=== PATIENT | female | born 1945 | race Caucasian/White ===

== ENCOUNTER → 2016-11-03 | Outpatient (CLI) | payer BC ==
[~2016-11-03] MED LIST: BETHANECHOL25 MG PO; CALCIUM; DIGESTIVE ENZYM1 TAB PO; FISH OIL1000 MG PO; HOMEOPATHIC MEDS; MAGNESIUM ELEME30 MG PO; PREMARIN0.9 MG PO; QVAR0.08 MG/AC IH; STOOL SOFTENER100 M2 PO; THYROID PO; TOPROL XL 25MG25 MG PO; VITAMIN D32000 IU PO; ZANTAC150 MG PO; [UNRECOGNIZED DRUG - OTHER]; [UNRECOGNIZED DRUG - OTHER]
== END ==
LOC: COL.LAB 17:02
DX: R10.32 Left lower quadrant pain (principal)

== ENCOUNTER → 2016-11-04 | Outpatient (CLI) | payer BC | LOC: COL.RAD 13:00 | DX: R10.32 Left lower quadrant pain (principal) ==

== ENCOUNTER 2017-02-18 18:37 | Emergency (ER) | payer BC ==
[~2017-02-18] VITALS: Ht 160 cm; Wt 63.6 kg
[2017-02-18 18:45] VITALS: TEMP 98.1
[2017-02-18 19:13] LABS: BASO # 0.1 (0.0-0.2); BASO % 0.8 % (0.0-2.0); EOS # 0.3 (0.0-0.7); EOS % 4.1 % (0-4.0); GRAN # 4.6 (1.4-6.5); GRAN % 61.2 % (42.2-75.2); HEMATOCRIT 43.2 % (37.0-47.0); HEMOGLOBIN 14.6 g/dl (12.5-16.0); LYMPH # 1.7 (1.2-3.4); MEAN CELL VOLUME 96 fl (80.0-100.0); MEAN CORPUSCULAR HEMOGLOBIN 32 pg (27.0-31.0); MEAN CORPUSCULAR HGB CONC 34 g/dl (33.0-37.0); MONO # 0.8 (0.1-0.6); MONO % 10.6 % (1.7-9.3); PLATELET COUNT 166 K/mm3 (130-400); RED BLOOD COUNT 4.52 M/mm3 (4.10-5.30); REDCELL DISTRIBUTION WIDTH-CV 13.3 % (11.5-14.5); WHITE BLOOD COUNT 7.5 K/mm3 (4.8-10.8)
[2017-02-18 19:37] LABS: PH 5 (5-8); SQUAMOUS EPITHELIAL None Seen /hpf; URINE APPEARANCE Clear; URINE BACTERIA None Seen /hpf; URINE BILIRUBIN Negative (NEGATIVE); URINE BLOOD Negative (NEGATIVE); URINE COLOR Straw; URINE GLUCOSE Negative (NEGATIVE); URINE KETONE Negative (NEGATIVE); URINE RBC 0-2 /hpf; URINE UROBILINOGEN Negative (NEGATIVE); URINE WBC 0-2 /hpf
[2017-02-18 19:39] LABS: INR 0.9 (0.8-3.0); PROTHROMBIN TIME 10.4 SECONDS (9.7-12.8)
[2017-02-18 19:50] LABS: ADJUSTED CALCIUM 9.6 mg/dL (8.4-10.2); ALANINE AMINOTRANSFERASE 37 U/L (9-52); ALBUMIN 4.2 gm/dL (3.5-5.0); ALKALINE PHOSPHATASE 68 U/L (50-136); ANION GAP 10 mmol/L (7-16); BILIRUBIN,TOTAL 0.6 mg/dL (0.0-1.0); BLOOD UREA NITROGEN 21 mg/dL (7-17); CALCIUM 9.8 mg/dL (8.4-10.2); CARBON DIOXIDE 28 mmol/L (22-30); CHLORIDE 101 mmol/L (98-107); CREATININE, serum 0.79 mg/dL (0.52-1.25); GLUCOSE 90 mg/dL (74-106); POTASSIUM 4.1 mmol/L (3.4-5.0); SODIUM 139 mmol/L (137-145); TOTAL PROTEIN 7.2 gm/dL (6.4-8.2)
[2017-02-18 20:01] LABS: TROPONIN-I < 0.012 ng/mL (0.000-0.034)
[2017-02-18 22:39] VITALS: BP 106/54; PULSE 88
== END 2017-02-18 22:39 | disposition home or self-care (01) ==
LOC: COL.ER 18:37
PROVIDERS: Emergency Medicine
DX: R07.9 Chest pain, unspecified (principal); R42 Dizziness and giddiness; R53.1 Weakness; J45.909 Unspecified asthma, uncomplicated; C85.90 Non-Hodgkin lymphoma, unspecified, unspecified site

== ENCOUNTER 2017-06-13 19:44 | Emergency (ER) | payer OTHER, BC ==
[~2017-06-13] VITALS: Ht 160 cm; Wt 62.7 kg
[2017-06-13 19:47] VITALS: BP 128/85; TEMP 98.6
[2017-06-13 22:34] VITALS: PULSE 91
== END 2017-06-13 22:34 | disposition home or self-care (01) ==
LOC: COL.ER 19:44
DX: S61.011A Laceration without foreign body of right thumb without damage to nail, initial encounter (principal); J45.909 Unspecified asthma, uncomplicated; I47.1 Supraventricular tachycardia; Z85.72 Personal history of non-Hodgkin lymphomas; W23.0XXA Caught, crushed, jammed, or pinched between moving objects, initial encounter

== ENCOUNTER 2017-06-23 20:32 | Emergency (ER) | payer OTHER ==
[2017-06-23 21:00] VITALS: PULSE 79
== END 2017-06-23 21:05 | disposition home or self-care (01) ==
LOC: COL.ER 20:32
DX: Z48.02 Encounter for removal of sutures (principal)

== ENCOUNTER → 2017-06-27 | Emergency (ER) | payer OTHER, BC ==
[2017-06-27 14:56] VITALS: BP 128/62; PULSE 81; TEMP 98.1
== END ==
LOC: COL.ER 14:49
DX: Z48.02 Encounter for removal of sutures (principal)

== ENCOUNTER 2017-10-02 16:01 | Emergency (ER) | payer BC ==
[~2017-10-02] VITALS: Ht 160 cm; Wt 62.3 kg
[2017-10-02 16:03] VITALS: BP 145/89
[2017-10-02] MEDS ORDERED: FLEXERIL 1010 MG/TAB PO (17:32)
[2017-10-02] MEDS ORDERED: CRUTCHES MC (17:33)
[2017-10-02 17:44] VITALS: PULSE 92
== END 2017-10-02 17:45 | disposition home or self-care (01) ==
LOC: COL.ER 16:01
DX: S76.311A Strain of muscle, fascia and tendon of the posterior muscle group at thigh level, right thigh, initial encounter (principal); K21.9 Gastro-esophageal reflux disease without esophagitis; J45.909 Unspecified asthma, uncomplicated; Z85.72 Personal history of non-Hodgkin lymphomas; W00.0XXA Fall on same level due to ice and snow, initial encounter; Y93.01 Activity, walking, marching and hiking; Y99.0 Civilian activity done for income or pay
CPT/HCPCS: J1885

== ENCOUNTER → 2018-07-06 | Outpatient (CLI) | payer BC ==
[~2018-07-06] MED LIST changes: +CRUTCHES MC; +FLEXERIL 1010 MG/TAB PO
== END ==
LOC: COL.RAD 09:52
DX: J34.89 Other specified disorders of nose and nasal sinuses (principal)

== ENCOUNTER 2019-02-21 20:41 | Emergency (ER) | payer BC ==
[~2019-02-21] VITALS: Ht 160 cm; Wt 58.2 kg
[2019-02-21 20:49] VITALS: TEMP 97.4
[2019-02-21 22:17] VITALS: BP 137/62; PULSE 84
== END 2019-02-21 22:17 | disposition home or self-care (01) ==
LOC: COL.ER 20:41
DX: S51.811A Laceration without foreign body of right forearm, initial encounter (principal); J45.909 Unspecified asthma, uncomplicated; W01.0XXA Fall on same level from slipping, tripping and stumbling without subsequent striking against object, initial encounter; Z87.891 Personal history of nicotine dependence; Y92.009 Unspecified place in unspecified non-institutional (private) residence as the place of occurrence of the external cause

== ENCOUNTER 2019-03-04 21:03 | Emergency (ER) | payer BC | END 2019-03-04 21:47 | disposition home or self-care (01) | LOC: COL.ER 21:03 | DX: S51.811D Laceration without foreign body of right forearm, subsequent encounter (principal); X58.XXXD Exposure to other specified factors, subsequent encounter ==

== ENCOUNTER 2019-09-23 13:42 | Emergency (ER) | payer BC ==
[~2019-09-23] VITALS: Ht 160 cm; Wt 57.7 kg
[~2019-09-23 13:42] MED LIST changes: -THE MEDICINE S200 M2 PO
[2019-09-23 14:39] LABS: BASO % 0.3 % (0.0-2.0); EOS # 0.2 (0.0-0.7); EOS % 1.9 % (0-4.0); GRAN # 8.2 (1.4-6.5); GRAN % 74.5 % (42.2-75.2); HEMATOCRIT 44.5 % (37.0-47.0); HEMOGLOBIN 14.9 g/dl (12.5-16.0); LYMPH # 1.4 (1.2-3.4); MEAN CELL VOLUME 99 fl (80.0-100.0); MEAN CORPUSCULAR HEMOGLOBIN 33 pg (27.0-31.0); MEAN CORPUSCULAR HGB CONC 34 g/dl (33.0-37.0); MEAN PLATELET VOLUME 10.9 fl (7.4-10.4); MONO % 9.2 % (1.7-9.3); PLATELET COUNT 230 K/mm3 (130-400); RED BLOOD COUNT 4.49 M/mm3 (4.10-5.30); REDCELL DISTRIBUTION WIDTH-CV 13.4 % (11.5-14.5)
[2019-09-23 14:40] LABS: INR 0.9 (0.8-3.0)
[2019-09-23] MEDS ORDERED: THE MEDICINE S200 M2 PO (14:42)
[2019-09-23 15:29] LABS: ALBUMIN 3.3 gm/dL (3.5-5.0); BILIRUBIN,TOTAL 0.8 mg/dL (0.0-1.0); CALCIUM 8.8 mg/dL (8.4-10.2); CREATININE, serum 0.7 (0.52-1.25); POTASSIUM 4.4 mmol/L (3.4-5.0); TOTAL PROTEIN 5.9 gm/dL (6.4-8.2)
[2019-09-23 15:41] LABS: TROPONIN-I 0.023 ng/mL (0.000-0.035)
[2019-09-23 19:28] VITALS: BP 119/64; PULSE 77
== END 2019-09-23 19:28 | disposition home or self-care (01) ==
LOC: COL.ER 13:42
PROVIDERS: Emergency Medicine
DX: R07.89 Other chest pain (principal); J45.909 Unspecified asthma, uncomplicated; Z90.710 Acquired absence of both cervix and uterus; Z98.51 Tubal ligation status; Z87.891 Personal history of nicotine dependence
CPT/HCPCS: C9113

== ENCOUNTER → 2019-09-23 | Outpatient (CLI) | payer BC ==
[~2019-09-23] MED LIST changes: +ALBUTEROL1.25 MG/3 IH; +ALDACTONE 25MG25 M1 PO; +ALTACE 2.5MG T2.5 MG PO; +PREDNISONE10 MG PO; +PREDNISONE20 MG PO; +QVAR REDIHALE10.6 G1 IH; +THE MEDICINE S200 M2 PO; +ZEBETA 5MG5 MG PO
[2019-09-24 18:16] LABS: PROGESTERONE 0.9 ng/mL (())
== END ==
LOC: COL.LAB 19:37
PROVIDERS: Urology
DX: G47.00 Insomnia, unspecified (principal); Z79.890 Hormone replacement therapy

== ENCOUNTER 2019-12-09 15:54 | Outpatient (RCR) | payer SELFPAY ==
[~2019-12-09 15:54] MED LIST changes: +THE MEDICINE S200 M2 PO
== END 2019-12-24 | disposition home or self-care (01) ==
LOC: COL.CR
DX: Z02.89 Encounter for other administrative examinations (principal)

== ENCOUNTER 2020-04-10 10:44 | Day surgery (SDC) | payer BC ==
[~2020-04-10] VITALS: Ht 160 cm; Wt 57.0 kg
[2020-04-10] MEDS ORDERED: ZEBETA 5MG5 MG PO (12:18)
[2020-04-10] MEDS ORDERED: COLACE 100100 MG/CAP PO (12:19)
[2020-04-10] MEDS ORDERED: Bioidentical Hormone TOP (12:22)
[2020-04-10] MEDS ORDERED: FISH OIL 1000MG1 CAP PO (12:24)
[2020-04-10] MEDS ORDERED: XOPENEX HF0.045 MG/A IH (12:27)
[2020-04-10] MEDS ORDERED: ATIVAN 0.50.5 MG/TAB PO (12:28)
[2020-04-10] MEDS ORDERED: PROTONIX 40MG T40 MG PO (12:29)
[2020-04-10] MEDS ORDERED: PRENATAL PO (12:29)
[2020-04-10] MEDS ORDERED: ALDACTONE 25MG25 M1 PO (12:30)
[2020-04-10] MEDS ORDERED: ZESTRIL2.5 MG PO (12:31)
[2020-04-10] MEDS ORDERED: 00186-0372-20 IH (12:31)
[2020-04-10] MEDS ORDERED: PROGESTERONE PO (12:33)
[2020-04-10] MEDS ORDERED: [UNRECOGNIZED DRUG - OTHER] PO (12:34)
[2020-04-10] MEDS ORDERED: [UNRECOGNIZED DRUG - OTHER] PO (12:35)
[2020-04-10] MEDS ORDERED: GLUCOSAMINE & C1 TAB PO (12:36)
[2020-04-10] MEDS ORDERED: TESSALON P100 MG/CAP PO (12:37)
[2020-04-10] MEDS ORDERED: VITAMIN A10k PO (12:37)
[2020-04-10 12:47] VITALS: BP 116/55; PULSE 62; TEMP 97.8
[2020-04-10 13:00] VITALS: BP 93/70; PULSE 62; TEMP 97.5
--- NOTE | 2020-04-10 13:00 | NUR ---
PT TO [facility] 8 FROM PROCEDURE ROOM ON CART. PT AMBULATES FROM CART TO CHAIR IN BAY 8. PT DENIES C/0. PT DAUGHTER IN ROOM. CALL LIGHT NEXT TO PT.
[2020-04-10 13:15] VITALS: BP 113/60; PULSE 62
--- NOTE | 2020-04-10 13:15 | NUR ---
PT CONTINUES TO DENY C/O. VITAL SIGNS STABLE. PT EATING MUFFIN AND DRINKING WATER. PT DAUGHTER IN ROOM. CALL LIGHT NEXT TO PT.
[2020-04-10] MEDS ORDERED: CALCIUM 600MG+D1 TAB PO (13:18)
[2020-04-10] MEDS ORDERED: B COMPLEX #11 TA1 PO (13:19)
[2020-04-10] MEDS ORDERED: THE MEDICINE S200 M2 PO (13:19)
[2020-04-10] MEDS ORDERED: FLONASEALLERGY NS (13:19)
[2020-04-10 13:30] VITALS: BP 124/57; PULSE 69
--- NOTE | 2020-04-10 13:30 | NUR ---
PT CONTINUES TO DENY C/O. VITAL SIGNS STABLE. DISCHARGE INSTRUCTIONS REVIEWED WITH PT AND PT DAUGHTER. BOTH VERBALIZES UNDERSTANDING. IV DISCONTINUED. CATHETER INTACT.
--- NOTE | 2020-04-10 13:40 | NUR ---
PT WHEELCHAIR RIDE TO DAUGHTERS CAR BY RN. PT DENIES C/O.
== END 2020-04-10 13:35 | disposition home or self-care (01) ==
LOC: SDCO 10:44
DX: R19.7 Diarrhea, unspecified (principal); Z86.010 Personal history of colon polyps; C85.90 Non-Hodgkin lymphoma, unspecified, unspecified site; K57.30 Diverticulosis of large intestine without perforation or abscess without bleeding; I50.9 Heart failure, unspecified; I47.1 Supraventricular tachycardia; J45.909 Unspecified asthma, uncomplicated; G47.33 Obstructive sleep apnea (adult) (pediatric); G89.29 Other chronic pain; K21.9 Gastro-esophageal reflux disease without esophagitis; Z87.891 Personal history of nicotine dependence; Z88.5 Allergy status to narcotic agent; Z88.2 Allergy status to sulfonamides; Z79.899 Other long term (current) drug therapy; Z91.041 Radiographic dye allergy status
CPT/HCPCS: J7030

== ENCOUNTER → 2020-08-17 | Outpatient (CLI) | payer BC ==
[~2020-08-17] MED LIST changes: +00186-0372-20 IH; +ATIVAN 0.50.5 MG/TAB PO; +B COMPLEX #11 TA1 PO; +Bioidentical Hormone TOP; +CALCIUM 600MG+D1 TAB PO; +COLACE 100100 MG/CAP PO; +FISH OIL 1000MG1 CAP PO; +FLONASEALLERGY NS; +GLUCOSAMINE & C1 TAB PO; +PRENATAL PO; +PROGESTERONE PO; +PROTONIX 40MG T40 MG PO; +TESSALON P100 MG/CAP PO; +VITAMIN A10k PO; +XOPENEX HF0.045 MG/A IH; +ZESTRIL2.5 MG PO; +[UNRECOGNIZED DRUG - OTHER] PO; +[UNRECOGNIZED DRUG - OTHER] PO
== END ==
LOC: MC.RAD 11:45
DX: Z12.31 Encounter for screening mammogram for malignant neoplasm of breast (principal)

== ENCOUNTER 2022-01-10 12:55 | Day surgery (SDC) | payer BC ==
[~2022-01-10] VITALS: Ht 160 cm; Wt 59.9 kg
[2022-01-10] MEDS ORDERED: [UNRECOGNIZED DRUG - OTHER] (13:59)
[2022-01-10] MEDS ORDERED: ARMOUR THYROID30 MG PO (13:59)
[2022-01-10] MEDS ORDERED: [UNRECOGNIZED DRUG - OTHER] (14:00)
[2022-01-10] MEDS ORDERED: ESTRIOL (14:00)
[2022-01-10] MEDS ORDERED: SAW PALMETTO PO (14:01)
[2022-01-10] MEDS ORDERED: TURMERIC500 MG PO (14:01)
[2022-01-10] MEDS ORDERED: B COMPLEX & B121 TAB PO (14:02)
[2022-01-10] MEDS ORDERED: VITAMIN C500 MG PO (14:02)
[2022-01-10 14:32] VITALS: BP 119/75; PULSE 73; TEMP 97
[2022-01-10 20:15] VITALS: BP 115/50; PULSE 79; TEMP 98
[2022-01-10 20:30] VITALS: BP 123/71; PULSE 74
[2022-01-10 20:45] VITALS: BP 111/52; PULSE 69
[2022-01-10] MEDS ORDERED: PERCOCET 325 MG1 TA2 PO (20:51)
[2022-01-10] MEDS ORDERED: CELEBREX 1100 MG/CAP PO (20:53)
[2022-01-10] MEDS ORDERED: OMNICEF 300MG300 MG PO (20:54)
[2022-01-10 21:00] VITALS: BP 114/47; PULSE 72
[2022-01-10 21:15] VITALS: BP 121/56; PULSE 70
--- NOTE | 2022-01-10 22:13 | NUR ---
2014 Pt arrives to [place] [id number] from OR via cart and ELEVATOR INSTALLER APPRENTICE and RN assist. Pt drowsy but answering all questions appropriately. Monitors on and alarms set. Call light within reach. Report received from OMAYRA Sanchez, and QUINTON Munoz. Pt reports that she's not experiencing much pain and denies nausea. Pt requests water, saltines, and applesauce. Pt's leg elevated. Pt's daughter brought to room and many questions being answered. Pt's friend also brought to room and questions answered with her as well. 2044 Pt taking food and drink well. Pt states that pain is tolerable. No complications voiced by pt. 2099 Pt states that she's starting to feel more pain now and rates her pain at 8 out of 10. 2101 Fentanyl 50 [address] IV given[address] 2104 [address]. Antony in to visit with pt and answers extensive questions from pt and family. 2124 Pt now rating pain at 4 out of 10. 2144 Discharge instructions given to pt and family. All questions answered to their satisfaction. Handed to pt are a thank you card and discharge information as well as the 4-tab home pack of Percocet. 2204 Pt gets dressed with assistance from daughter. 2212 Pt transferred out of hospital via wheelchair and this RN assist with daughter accompanying to private vehicle driven by daughter.
== END 2022-01-10 22:13 | disposition home or self-care (01) ==
LOC: SDCO 12:55
DX: M20.11 Hallux valgus (acquired), right foot (principal); M20.42 Other hammer toe(s) (acquired), left foot; Z87.891 Personal history of nicotine dependence
CPT/HCPCS: C1713; J0690; J2704; J3010; J7120; L4386

== ENCOUNTER → 2023-01-27 | Outpatient (CLI) | payer BC ==
[~2023-01-27] MED LIST changes: +ARMOUR THYROID30 MG PO; +B COMPLEX & B121 TAB PO; +CELEBREX 1100 MG/CAP PO; +ESTRIOL; +OMNICEF 300MG300 MG PO; +PERCOCET 325 MG1 TA2 PO; +SAW PALMETTO PO; +TURMERIC500 MG PO; +VITAMIN C500 MG PO; +[UNRECOGNIZED DRUG - OTHER]; +[UNRECOGNIZED DRUG - OTHER]
[2023-01-27 16:27] LABS: COLLECTION METHOD CLEAN CATCH
[2023-01-27 16:45] LABS: URINE BACTERIA None Seen /hpf (NONE SEEN); URINE RBC 0-2 /hpf (0-2); URINE WBC 0-2 /hpf (0-2)
[2023-01-27 16:46] LABS: PH 5.5 (5-8); URINE APPEARANCE Hazy (CLEAR/HAZY); URINE BLOOD Negative (NEGATIVE); URINE COLOR Yellow (YELLOW); URINE GLUCOSE Negative (NEGATIVE); URINE KETONE Negative (NEGATIVE); URINE NITRATE Negative (NEGATIVE); URINE PROTEIN(semi-quant) Negative (NEGATIVE); URINE UROBILINOGEN 0.2 (NEGATIVE)
[2023-01-27 21:56] LABS: T3 FREE (TRI-IODOTHYRONINE) 3.1 pg/mL (1.7-3.7)
== END ==
LOC: COL.LAB 15:36
DX: Z79.890 Hormone replacement therapy (principal); M25.59 Pain in other specified joint; M20.40 Other hammer toe(s) (acquired), unspecified foot; R53.83 Other fatigue

== ENCOUNTER 2023-03-08 00:38 | Emergency (ER) | payer BC ==
[~2023-03-08] VITALS: Ht 160 cm; Wt 60.5 kg
[2023-03-08 00:49] VITALS: TEMP 97.5
[2023-03-08] MEDS ORDERED: DOXYCYCLINE HY100 MG PO (01:29)
[2023-03-08] MEDS ORDERED: BACIGUENT3.5 GM OU (01:30)
[2023-03-08 01:50] VITALS: BP 110/52; PULSE 72
== END 2023-03-08 01:53 | disposition home or self-care (01) ==
LOC: COL.ER 00:38
DX: L03.113 Cellulitis of right upper limb (principal); Z88.2 Allergy status to sulfonamides; Z28.310 Unvaccinated for COVID-19